=== PATIENT | female | born 1945 | race Caucasian/White ===

== ENCOUNTER 2016-06-01 05:21 | Day surgery (SDC) | payer OTHER ==
[~2016-06-01] VITALS: Ht 157.5 cm; Wt 73.0 kg
[~2016-06-01 05:21] MED LIST: ADVIL200 MG PO; ASPIRIN81 M2 PO; CLARITIN,ALAVAR10 MG PO; ESTRACE42.5 GM VG; EXCEDRIN EXTRA1 EACH PO; NASACORT10.8 ML BOTH NARES; PRAVACHOL20 MG PO; PROTONIX20 MG PO; SINGULAIR10 MG PO; SYNTHROID25 MCG PO; ZOLOFT25 MG PO
[2016-06-01 05:48] VITALS: BP 133/63
[2016-06-01 09:35] VITALS: BP 150/67
[2016-06-01 11:06] VITALS: BP 130/63
== END 2016-06-01 11:18 | disposition home or self-care (01) ==
LOC: SDC 05:21
PROC: 0WQNXZZ Repair Female Perineum, External Approach (ICD-10-PCS; principal; 2016-06-01)
DX: N89.5 Stricture and atresia of vagina (principal); Z90.710 Acquired absence of both cervix and uterus; Z79.818 Long term (current) use of other agents affecting estrogen receptors and estrogen levels; Z88.2 Allergy status to sulfonamides; Z80.0 Family history of malignant neoplasm of digestive organs; Z83.3 Family history of diabetes mellitus; Z79.82 Long term (current) use of aspirin
CPT/HCPCS: 88305; J0131; J0690; J1100; J2250; J2405; J2765; J3010; S0020